=== PATIENT | male | born 1950 | race Caucasian/White ===

== ENCOUNTER 2018-01-01 14:00 | Emergency (ER) | payer MEDICARE, OTHER ==
[2018-01-01] MEDS ORDERED: MORPHINE SULFATE INJ 10 MG/ML VIAL IM ONE (14:30)
[2018-01-01] MEDS ORDERED: ONDANSETRON INJ 4 MG/2 ML VIAL IM ONE (14:31)
--- NOTE | 2018-01-01 14:34 | ED.PDOC ---
History of Present Illness - General Chief Complaint: Back Pain or Injury Stated Complaint: back pain Time Seen by Provider: 01/01/18 14:27 Source: patient Exam Limitations: no limitations - History of Present Illness Timing/Duration: 1-3 hours Quality/Severity: severe Back Pain Location: lumbar spine, paraspinous muscles Back Pain Radiation: buttocks, upper legs - on L Method of Injury/Prior Injury: twisted Improving Factors: immobilization, rest Worsening Factors: movement Associated Symptoms: muscle spasms, lower back pain Allergies/Adverse Reactions: Allergies Penicillins Allergy (Verified 01/01/18 14:22) Phenobarbital Allergy (Verified 01/01/18 14:22) Sulfa Antibiotics Allergy (Verified 01/01/18 14:22) Valproic Acid [From Depakote] Allergy (Verified 01/01/18 14:22) Review of Systems - Review of Systems Constitutional: States: no symptoms reported EENTM: States: no symptoms reported Respiratory: States: no symptoms reported Cardiology: States: no symptoms reported Gastrointestinal/Abdominal: States: no symptoms reported Genitourinary: States: no symptoms reported Musculoskeletal: States: back pain Skin: States: no symptoms reported Neurological: States: no symptoms reported Past Medical History (General) - Patient Medical History Hx Seizures: Yes - Social History Hx Tobacco Use: Yes Hx Alcohol Use: Yes Hx Substance Use: Yes - crack/cocaine, last use one month ago Family Medical History - Family History Mother Family History: Unknown Departure - Departure Clinical Impression: Strain, lumbosacral Qualifiers: Encounter type: initial encounter Qualified Code(s): S39.012A - Strain of muscle, fascia and tendon of lower back, initial encounter Disposition: Discharge to Home or Self Care Departure Forms: ED Discharge - Pt. Copy, Patient Portal Self Enrollment Instructions: DI for Low Back Pain
[2018-01-01 16:18] VITALS: BP 106/51; TEMP 97; O2SAT 96
== END 2018-01-01 15:04 | disposition home or self-care (01) ==
LOC: ER 14:00
DX: S39.012A Strain of muscle, fascia and tendon of lower back, initial encounter (principal); Z87.891 Personal history of nicotine dependence; X50.1XXA Overexertion from prolonged static or awkward postures, initial encounter; Y92.9 Unspecified place or not applicable
CPT/HCPCS: J2270; J2405

== ENCOUNTER 2020-04-29 17:34 | Emergency (ER) | payer OTHER ==
[2020-04-29 17:55] VITALS: TEMP 97
[2020-04-29] MEDS ORDERED: SUCRALFATE 1 GM/10 ML 1 GM UD PO ONE (18:11)
[2020-04-29] MEDS ORDERED: ALUM & MAG HYDROX-SIMETHICONE 30 ML, LIDOCAINE VISCOUS 2% 15 ML PO ONE ×2 (18:11)
[2020-04-29] MEDS ORDERED: PANTOPRAZOLE SODIUM IV 40 MG VIAL IV ONE (18:18)
--- NOTE | 2020-04-29 19:03 | CT ---
EXAM: Abdomen/Pelvis w/Contrast CLINICAL INDICATION: Abdominal pain. COMPARISON: There is no previous study for comparison. TECHNIQUE: The CT scan was done using contiguous axial 5 mm postcontrast sections through the abdomen and pelvis including IV contrast. This exam was performed according to our departmental dose-optimization program, which includes automated exposure control, adjustment of the mA and/or kV according to patient size and/or use of iterative reconstruction technique. FINDINGS: The visualized portions of the lung bases are clear. The liver, gallbladder, kidneys, adrenal glands, spleen, and pancreas have a normal CT appearance. The aorta is normal in caliber. The appendix is normal. There are no dilated loops of small bowel, free air, free fluid, or abscess. IMPRESSION: No evidence of an acute intra-abdominal process. Electronically signed by: Destin Art MD 04/29/2020 7:01 PM [facility] [[email or web address]]
[2020-04-29 19:17] VITALS: O2SAT 95
--- NOTE | 2020-04-29 19:17 | ED.PDOC ---
History of Present Illness - General Chief Complaint: Abdominal Pain Stated Complaint: abdominal pain Time Seen by Provider: 04/29/20 17:53 Information Source: patient, family Exam Limitations: no limitations - History of Present Illness Initial Comments: 1 WK ABD PAIN, COMES AND GOES, WORSE AT NIGHT. NOT AFFECTED BY FOOD. WORSENED TODAY. HAD 1 D SHARP RLQ PAIN, WHICH RESOLVED. NOW IT'S WORSE EPIGASTRIC. PT FEELS IT BUBBLES UP INTO HIS THROAT. HE HAS BEEN TAKING SEVERAL CIMETIDINE PER DAY FOR YEARS. TOOK SEVERAL CIMETIDINE TODAY AND NUMEROUS TUMS, NO HELP. H/O GERD. SMOKES. HE DOESN'T GO TO DR. REGULARLY. Abdominal Pain Onset Location: epigastric Pain Radiation: RLQ Quality: sharpness Timing/Duration: constant, getting worse Improving Factors: nothing Worsening Factors: rest Associated Symptoms: denies symptoms Review of Systems - Review of Systems Constitutional: Denies: chills, fever EENTM: Denies: throat pain, mouth pain Respiratory: Denies: cough, short of breath Cardiology: Denies: chest pain, palpitations Gastrointestinal/Abdominal: States: abdominal pain. Denies: diarrhea, nausea, vomiting Genitourinary: States: no symptoms reported Musculoskeletal: States: no symptoms reported Skin: States: no symptoms reported Neurological: States: no symptoms reported Endocrine: States: no symptoms reported Hematologic/Lymphatic: States: no symptoms reported All other Systems: Reviewed and Negative Past Medical History (General) - Patient Medical History Hx Seizures: Yes - Vaccination History Hx Influenza Vaccination: No Hx Pneumococcal Vaccination: No - Social History Hx Tobacco Use: Yes Hx Alcohol Use: Yes Hx Substance Use: Yes - crack/cocaine, last use one month ago - Female History Patient is a Female of Child Bearing Age (10 -59 yrs old): No Patient : No Family Medical History - Family History Mother Family History: Unknown Physical Exam - Physical Exam General Appearance: Alert, Unkempt Eyes, Ears, Nose, Throat Exam: PERRL/EOMI, normal ENT inspection Neck: full range of motion, normal inspection Respiratory: normal breath sounds, no respiratory distress Cardiovascular/Chest: regular rate, rhythm, no gallop, no JVD, no murmur Peripheral Pulses: No deficit Gastrointestinal/Abdominal: soft, no organomegaly, no pulsatile mass, tenderness - EPIGASTRIC > RLQ Rectal Exam: deferred Back Exam: no CVA tenderness Extremity: normal range of motion, normal inspection Neurologic: no motor/sensory deficits, alert Skin Exam: normal color, warm/dry Lymphatic: no adenopathy Progress - Results/Orders Results/Orders: GERD - GAVE PROTONIX IV, CARAFATE, GI COCKTAIL IN ER. SX IMPROVED. PT INSTURCTED TO START OMEPRAZOLE DAILY. HE NEEDS TO SEE A PCP AND POSSIBLY HAVE EGD TO ASSESS HIS REFLUX AND ENSURE NO URBINA'S ESOPHAGUS. PT IS UNRELIABLE IN TERMS OF ADHERENCE HE STATES HE DOESN'T CARE TO GO TO A REGULAR DR. WITH 1 D RLQ PAIN, HE WARRANTED A CT TO ENSURE ON APPENDICITIS, WHICH IT WAS NEG. EKG, CBC, CMP, LIPASE NEG FOR ANY CONCERNS. SAFE FOR DC TO HOME. Departure - Departure Clinical Impression: GERD (gastroesophageal reflux disease) Qualifiers: Esophagitis presence: esophagitis presence not specified Qualified Code(s): K21.9 - Gastro-esophageal reflux disease without esophagitis Disposition: Discharge to Home or Self Care Condition: Fair Departure Forms: ED Discharge - Pt. Copy, Patient Portal Self Enrollment Instructions: DI for Abdominal Pain-Adult, Acid Reflux and GERD in Adults (DC) Diet: resume usual diet Activity: increase activity as tolerated Additional Instructions: Please start taking Omeprazole 20 mg per day. It is sold at the pharmacy without a prescription. Please make an appointment with a regular doctor to follow-up. There are additional steps that can be taken if your symptoms persist after starting omeprazole.
[2020-04-29 19:41] VITALS: BP 132/68
== END 2020-04-29 19:41 | disposition home or self-care (01) ==
LOC: ER 17:34
DX: K21.9 Gastro-esophageal reflux disease without esophagitis (principal); R10.31 Right lower quadrant pain; F17.200 Nicotine dependence, unspecified, uncomplicated; Z79.899 Other long term (current) drug therapy